=== PATIENT | female | born 1960 | race Caucasian/White ===

== ENCOUNTER 2020-01-12 00:22 | Emergency (ER) | payer OTHER ==
--- NOTE | 2020-01-12 00:30 | ED Physician Documentation ---
PD HPI ABD PAIN - Stated complaint Stated Complaint: ABD PX - History obtained from History obtained from: Patient - History of Present Illness Timing - onset: How many days ago (2) Timing - duration: Days (2) Timing - details: Gradual onset, Constant, Waxing and waning Pain level now: 2 Quality: Pain Location: LLQ Radiation: Other (no radiation) Improved by: Laying still Worsened by: Moving, Palpation Associated symptoms: Nausea, Vomiting, Diarrhea (loose stool). No: Fever, Constipation Similar symptoms before: Has not had sx before Recently seen: Not recently seen Review of Systems Constitutional: denies: Fever, Chills, Sweats Cardiac: reports: Reviewed and negative Respiratory: reports: Reviewed and negative GI: reports: Abdominal Pain, Nausea, Vomiting, Diarrhea. denies: Abdominal Swelling, Constipation : denies: Dysuria, Frequency Skin: denies: Rash Musculoskeletal: denies: Back pain PD PAST MEDICAL HISTORY - Past Medical History Past Medical History: No Cardiovascular: High cholesterol GI: GERD - Past Surgical History /[employer]: section - Present Medications Home Medications: Ambulatory Orders Medication Instructions Recorded Confirmed Atorvastatin Calcium 80 mg PO DAILY 01/12/20 01/12/20 Ciprofloxacin HCl [Cipro] 500 mg PO BID #14 tablet 01/12/20 HYDROcod/ACETAM 5/325 [[place] 5/325] 1 - 2 ea PO Q6H PRN #10 tablet 01/12/20 Omeprazole 20 mg PO DAILY 01/12/20 01/12/20 Valacyclovir HCl [Valacyclovir] 500 mg PO DAILY 01/12/20 01/12/20 hydroCHLOROthiazide 25 mg PO DAILY 01/12/20 01/12/20 [Hydrochlorothiazide] metroNIDAZOLE [Flagyl] 500 mg PO Q8HR #20 tablet 01/12/20 - Allergies Allergies/Adverse Reactions: Allergies Allergy/AdvReac Type Severity Reaction Status Date / Time Penicillins Allergy Rash Verified 01/12/20 00:42 PD ED PE NORMAL - Vitals Vital signs reviewed: Yes - General General: Alert and oriented X 3, No acute distress, Well developed/nourished - Neck Neck: Supple, no meningeal sign - Cardiac Cardiac: RRR, No murmur - Respiratory Respiratory: No respiratory distress, Clear bilaterally - Abdomen Abdomen: Soft, Non distended - Derm Derm: Normal color, Warm and dry PD ED PE EXPANDED - Abdomen Abdomen: Normal Bowel sounds, Tender to palpation, LLQ. No: Distended, Rebound, Guarding Results - Vitals Vitals: Vital Signs - 24 hr 01/12/20 01/12/20 01/12/20 00:25 01:23 02:12 Temperature 37.2 C 37.2 C Heart Rate 90 71 73 Respiratory 16 16 16 Rate Blood Pressure 149/88 H 120/85 H 115/78 O2 Saturation 98 99 98 01/12/20 01/12/20 03:29 04:10 Temperature 36.5 C Heart Rate 82 74 Respiratory 16 16 Rate Blood Pressure 117/83 H 132/79 H O2 Saturation 97 100 Oxygen O2 Source Room air - Labs Labs: Laboratory Tests 01/12/20 01/12/20 01/12/20 00:35 00:40 00:40 WBC 11.2 H RBC 4.40 Hgb 14.1 Hct 41.7 MCV 94.8 MCH 32.0 H MCHC 33.8 RDW 12.5 Plt Count 295 MPV 9.6 Neut # (Auto) 6.8 H Lymph # (Auto) 3.2 [place] # (Auto) 1.0 Eos # (Auto) 0.1 Baso # (Auto) 0.1 Absolute Nucleated RBC 0.00 Nucleated RBC % 0.0 Sodium 133 L Potassium 3.4 L Chloride 93 L Carbon Dioxide 29 Anion Gap 11.0 BUN 10 Creatinine 0.6 Estimated GFR (MDRD) 102 Glucose 112 H Calcium 9.8 Total Bilirubin 0.7 AST 19 ALT 21 Alkaline Phosphatase 104 Total Protein 8.0 Albumin 4.9 Globulin 3.1 Albumin/Globulin Ratio 1.6 Lipase 30 Urine Color YELLOW Urine Clarity CLEAR Urine pH 7.5 Ur Specific [place] 1.015 Urine Protein NEGATIVE Urine Glucose (UA) NEGATIVE Urine Ketones NEGATIVE Urine Occult Blood NEGATIVE Urine Nitrite NEGATIVE Urine Bilirubin NEGATIVE Urine Urobilinogen 0.2 (NORMAL) Ur Leukocyte Esterase NEGATIVE Ur Microscopic Review NOT INDICATED Urine Culture Comments NOT INDICATED - Rads (name of study) CT A/P Radiology: Prelim report reviewed, See rad report PD MEDICAL DECISION MAKING - ED course Complexity details: reviewed results, re-evaluated patient, considered differential, d/w patient Departure - Departure Disposition: 01 Home, Self Care Clinical Impression: Diverticulitis Condition: Good Instructions: ED Diverticulitis Prescriptions: metroNIDAZOLE [Flagyl] 500 mg PO Q8HR #20 tablet Ciprofloxacin HCl [Cipro] 500 mg PO BID #14 tablet HYDROcod/ACETAM 5/325 [[place] 5/325] 1 - 2 ea PO Q6H PRN #10 tablet PRN Reason: Pain Discharge Date/Time: 01/12/20 04:12
[2020-01-12 00:56] LABS: BILIRUBIN,URINE NEGATIVE (NEGATIVE); GLUCOSE, URINE (UA) NEGATIVE (NEGATIVE); KETONES,URINE (UA) NEGATIVE (NEGATIVE); LEUKOCYTE ESTERASE, URINE NEGATIVE (NEGATIVE); NITRITE,URINE NEGATIVE (NEGATIVE); OCCULT BLOOD,URINE NEGATIVE (NEGATIVE); PH,URINE 7.5 PH (5.0-7.5); PROTEIN,URINE NEGATIVE (NEGATIVE); UROBILINOGEN,URINE 0.2 (NORMAL) E.U./dL (NORMAL)
[2020-01-12 01:00] LABS: CLARITY,URINE CLEAR (CLEAR)
[2020-01-12 01:03] LABS: BASOPHILS # (AUTO) 0.1 10^3/uL (0.0-0.1); BASOPHILS % (AUTO) 0.4 %; EOSINOPHILS # (AUTO) 0.1 10^3/uL (0.0-0.7); EOSINOPHILS % (AUTO) 0.8 %; HGB - HEMOGLOBIN 14.1 g/dL (12.0-16.0); LYMPHOCYTES # (AUTO) 3.2 10^3/uL (1.5-3.5); LYMPHOCYTES % (AUTO) 28.4 %; MEAN CORPUSCULAR HGB CONC 33.8 g/dL (32.0-36.0); MEAN CORPUSCULAR VOLUME 94.8 fL (81.0-99.0); MEAN PLATELET VOLUME 9.6 fL (7.9-10.8); MONOCYTES % (AUTO) 8.6 %; NEUTROPHILS # (AUTO) 6.8 10^3/uL (1.5-6.6); NEUTROPHILS % (AUTO) 61.4 %; PLT - PLATELET COUNT 295 10^3/uL (130-450); RED CELL DISTRIBUTION WIDTH 12.5 % (12.0-15.0); WHITE BLOOD COUNT 11.2 x10^3/uL (4.8-10.8)
[2020-01-12] MEDS ORDERED: KETOROLAC 30 MG/ML VIAL IVP STA (01:05)
[2020-01-12 01:39] LABS: ALBUMIN 4.9 g/dL (3.2-5.5); ALBUMIN/GLOBULIN RATIO 1.6 (1.0-2.2); BILIRUBIN,TOTAL 0.7 mg/dL (0.2-1.0); CALCIUM 9.8 mg/dL (8.5-10.3); CREATININE 0.6 mg/dL (0.4-1.0)
[2020-01-12] MEDS ORDERED: IOVERSOL 320 100 ML VIAL IVP ONE ×2 (02:44→03:13)
[2020-01-12] MEDS ORDERED: CIPROFLOXACIN 250 MG TABLET PO STA (03:59)
[2020-01-12] MEDS ORDERED: metroNIDAZOLE 250 MG TABLET PO STA (04:00)
[2020-01-12 04:14] VITALS: BP 132/79
--- NOTE | 2020-01-12 11:04 | CT Report ---
PROCEDURE: Abdomen/Pelvis W INDICATIONS: LLQ pain, tenderness CONTRAST: IV CONTRAST: Optiray 320 ml: 100 PO CONTRAST: *NO PO CONTRAST TECHNIQUE: After the administration of nonionic IV contrast, 5 mm thick sections acquired from the diaphragms to the symphysis. 5 mm thick coronal and sagittal reformats were acquired. For radiation dose reducti on, the following was used: automated exposure control, adjustment of mA and/or kV according to wesley ent size. COMPARISON: None. FINDINGS: Image quality: Excellent. ABDOMEN: Lung bases: Lung bases are clear. Heart size is normal. Solid organs: Liver and spleen are normal in size and enhancement. Gallbladder wall does not appear thickened. Biliary system is non dilated. Pancreas enhances normally. No adrenal nodules. Kidn eys demonstrate normal size and enhancement, without hydronephrosis. Peritoneum and bowel: There is focal wall thickening with surrounding inflammatory change seen involv ing the distal descending colon and the proximal sigmoid colon. Diverticular formation can be seen wi thin this region. No free air is seen to suggest perforation. No loculated abscess is seen. No dilated loops of small bowel are seen. No focal wall thickening can be seen elsewhere. A normal ap pendix is incidentally noted. Nodes and vessels: No retroperitoneal or mesenteric adenopathy by size criteria. Aorta and inferior vena cava are normal in size. Miscellaneous: No ventral hernias. PELVIS: Genitourinary: Bladder wall thickness is normal. The uterus demonstrates an unremarkable appearance for age. No adnexal masses are seen. Miscellaneous: No inguinal hernias or adenopathy. Bones: No suspicious bony lesions. No vertebral body compression fractures. Mild levoconvex scolio tic curvature is seen. Age-appropriate degenerative changes are seen. IMPRESSION: Moderate diverticulitis is seen involving the distal descending colon and the proximal s igmoid colon. No findings of perforation or abscess can be seen. A colonoscopy is recommended for further evaluation, following treatment of the patient's current cli nical episode, for evaluation of a potential underlying mass. Incidental note is made of: Mild levoconvex scoliotic curvature Normal appendix Note: No significant discrepancy from the preliminary report. Reviewed by: Al Reyes MD on 01/12/2020 10:02 AM IGOR Approved by: Al Reyes MD on 01/12/2020 10:02 AM IGOR Station ID: [id number]
== END 2020-01-12 04:12 | disposition home or self-care (01) ==
LOC: ED 00:22
DX: K57.32 Diverticulitis of large intestine without perforation or abscess without bleeding (principal)
CPT/HCPCS: 36415; 74177; 80053; 81003; 83690; 85025; 96374; 99284; A9270; Q9967; 81001; 87086